=== PATIENT | male | born 1970 | race Caucasian/White ===

== ENCOUNTER 2017-08-21 19:06 | Observation (INO) ==
[2017-08-21] MEDS: Sodium Chloride 0.9% 1,000 ML PRIMARY IV SCH (19:15)
[2017-08-21] MEDS ORDERED: NITROGLYCERIN 0.4 MG SL TAB (BOTTLE OF 3) SL PRN (19:28)
[2017-08-21] MEDS ORDERED: NORMAL SALINE 10 ML SYRINGE FLUSH IVP PRN ×2 (19:28→20:57)
--- NOTE | 2017-08-21 19:31 | EKG ---
[address] [address] Measurements Intervals [place] Rate: 58 P: 34 VA: 158 QRS: 75 QRSD: 89 T: 32 QT: 393 QTc: 390 Interpretive Statements SINUS BRADYCARDIA No previous ECG available for comparison Electronically Signed On 08-23-17 12:55:35 MST by Memo Root [email or web address]
[2017-08-21 19:33] LABS: BLOOD UREA NITROGEN 11 mg/dL (7-22); BUN/CREATININE RATIO 12.22 (6-20); Hematocrit [HCT] 55.5 % (42.0-52.0); Hemoglobin [HGB] 19.1 g/dL (14.0-18.0); RED BLOOD COUNT 5.74 10^6/uL (4.70-6.10); SERUM ALBUMIN 4.3 g/dL (3.5-4.8)
[2017-08-21 19:34] LABS: BASOPHILS # (AUTO) 0.09 10*3/UL; BASOPHILS % (AUTO) 1.1 % (0-1); EOSINOPHILS # (AUTO) 0.29 10*3/UL; EOSINOPHILS % (AUTO) 3.4 % (0-8); LYMPHOCYTES # (AUTO) 2.09 10*3/uL; MEAN CORPUSCULAR HEMOGLOBIN 33.2 PG (27-31); MEAN CORPUSCULAR HGB CONC 34.4 g/dL (33-37); MEAN CORPUSCULAR VOLUME 97 FL (80-90); MEAN PLATELET VOLUME 7.3 FL (7.4-12.2); MONOCYTES # (AUTO) 0.79 10*3/UL (0.3-0.8); MONOCYTES % (AUTO) 9.3 % (5-15); NEUTROPHILS # (AUTO) 5.23 10*3/UL; NEUTROPHILS % (AUTO) 61.6 % (50-80); PLATELET MORPHOLOGY COMMENT NORMAL MORPHOLOGY (NORM); RBC MORPHOLOGY COMMENT NORMAL MORPHOLOGY (NORM); WBC MORPHOLOGY COMMENT NORMAL MORPHOLOGY (NORM)
--- NOTE | 2017-08-21 20:12 | DI ---
EXAM: XR Chest, 1 View CLINICAL HISTORY: Physician Notes: Tech Comments: TECHNIQUE: Frontal view of the chest. COMPARISON: No relevant prior studies available. FINDINGS: Lungs: Mild subsegmental left base atelectasis. No consolidation. Pleural space: Unremarkable. No pneumothorax. Heart: Unremarkable. No cardiomegaly. Mediastinum: Unremarkable. Bones/joints: Unremarkable. IMPRESSION: No radiographic findings of acute pulmonary disease
--- NOTE | 2017-08-21 20:50 | PDOC ---
HPI - History of Present Illness History of Present Illness: This very nice 47-year-old gentleman, who developed a sudden onset of chest pain with radiation to his throat with some shortness of breath but no diaphoresis he tried to manage this on his own he said he sat in the kitchen floor face down hugging himself took an aspirin as well pain was 7-8 out of 10 and by the time he reached the ER the patient was subsided. He is a smoker about 4 cigarettes a day for 5 years ago had a nuclear stress test but does not remember the results we did a stress part of his Lexiscan this morning he did quite well no chest pain during the test and initial part was within normal acute changes. He does not take any NSAIDs as well Past Medical History Tobacco Use: Current Every Day Smoker Do you dip or chew tobacco: No In the Past 12 Months, Have Used or Abuse Any of the Following Substance: Cocaine Medication / Allergies Home Medications: Home Medications Medication Instructions Recorded Confirmed Type NK [NK] 08/21/17 08/21/17 History Allergies/Adverse Reactions: Allergies 3 Allergy/AdvReac Type Severity Reaction Status Date / Time meperidine HCl [From Demerol] Allergy Severe BRADYCARDIA Verified 08/22/17 06:27 Review of Systems - Review of Systems All Systems: Reviewed & No Additional Complaints Except as Stated - Mouth/Throat Mouth/Throat Exam: DENIES: Negative System Review, Dental Problems, Oral Ulcers , Sore Throat, Hoarseness, Dysphagia, Dental Pain, Other, See HPI - Respiratory Respiratory: DENIES: Negative System Review, Cough, Sputum, Dyspnea At Rest, Dyspnea with Exertion, Pleuritic Pain, Hemoptysis, Wheezing, Other, See HPI - Cardiovascular Cardiovascular: REPORTS: Chest Pain - Gastrointestinal Gastrointestinal / Abdominal: DENIES: Negative System Review, Nausea, Vomiting, Diarrhea, Constipation, Abdominal Pain, Bloody Stool, Poor Appetite, Heartburn, Regurgitation, Bloating, Lactose Intolerance, Melena, Bright Red Blood per Rectum, Other, See HPI Exam - Vitals Vital Signs: Vital Signs Temperature 96.9 F Temperature Source Temporal Artery Scan Pulse Rate [Pulse Oximeter] 66 Pulse Rate 66 Respiratory Rate 18 Blood Pressure [Right Arm] 152/97 Pulse Ox 97 Oxygen Delivery Method Room Air Height 5 ft 10 in Weight 216 lb - General General Appearance: No Acute Distress, Cooperative - Head Head Exam: Normal Inspection, Normocephalic, Atraumatic - Eye Eye Exam: POSITIVE: Normal Appearance, PERRL, EOMI, No Scleral Icterus - ENT ENT Exam: POSITIVE: Normal Exam, Normal External Ear Exam, Normal Oropharynx, TM 's Normal Bilaterally, Mucous Membranes Moist - Neck Neck Exam: Normal Inspection, Full ROM, No Tenderness, No Lymphadenopathy, No Thyromegaly, JVP is not Raised - Respiratory Respiratory Exam: POSITIVE: Clear to Auscultation - Bilaterally, Breathing Non Labored, Normal To Percussion, Normal to Percussion and Palpation - Cardiovascular Cardiovascular Exam: POSITIVE: RRR, No Murmur, No Clicks, No Gallops, No Rubs, PMI Non-Displaced - GI/Abdominal GI/Abdominal Exam: POSITIVE: Normal Bowel Sounds, Non Tender, Non Distended, Soft, No Masses, No Hepatomegaly, No Splenomegaly, No Organomegaly - Rectal Rectal Exam: POSITIVE: Deferred - External Exam: POSITIVE: Deferred Exam: POSITIVE: Deferred - Extremities Extremities Exam: POSITIVE: Normal Inspection, Full ROM, Normal Capillary Refill , No Clubbing Present, No Edema Present, No Cyanosis Present, Negative Car's sign, Dosalis Pedis Pulses - Stong & Regular - Neurological Neurological Exam: POSITIVE: Alert, Oriented x 3, Reflexes Normal, Normal Gait, CN II-XII Intact, No Facial Droop, Speech Intact / Clear, Moves All Extremities Equally, No Fasciculations, No Clonus Results - Labs CBC and BMP: 08/22/17 09:50 08/22/17 07:00 Assessment and Plan - Patient Problems (1) Chest pain Current Visit: Yes Status: Acute Comment: trop x 3 , no chest pain at present Lexiscan is underway first part has been done he is a cocaine user I do not know if he has used any I will do a urine tox screen. Further evaluation when 4 images are done if negative consider GI source. Code(s): R07.9 - Chest pain, unspecified
[2017-08-21] MEDS ORDERED: LIDOCAINE W/ SODIUM BICARB 0.5 ML SYR SUBD PRN (20:57)
[2017-08-21] MEDS ORDERED: CALCIUM CARBONATE 500 MG (TUMS) CHEWABLE TABLET PO PRN (20:57)
[2017-08-21] MEDS ORDERED: ONDANSETRON 4 MG/2 ML VIAL IVP PRN (20:57)
--- NOTE | 2017-08-21 21:10 | PDOC ---
Chest Pain HPI - General Chief Complaint: Chest Pain Stated Complaint: CHEST PAIN Date Seen by Provider: 08/14/17 Time Seen by Provider: 19:10 Source: Patient, Spouse Exam Limitations: POSITIVE: No limitations Treatment Prior to Arrival: REPORTS: Aspirin Nurse's Notes Reviewed & Considered: Yes - History of Present Illness Initial Comments: The patient is a 47-year-old male. Approximately 1-1/2 hours [employer] he was at home sitting on a chair and he developed a "heaviness and sharp ache" in his anterior chest with some radiation into his throat. He describes the pain sometimes as a "squeezing". No dyspnea or diaphoresis. Patient took a adult aspirin at the time. He states he intensity of his pain at home was "she 6 or 7 on a scale of 10". By the time he gets to the emergency room the patient is pain has subsided. Patient smokes 3 or 4 cigarettes per day. Patient states he had an episode of chest pain 5 years ago and underwent a "nuclear stress test ", which the patient believes was normal. He's presently on no medications except one baby aspirin daily. Body Location Affected: REPORTS: Chest Timing: REPORTS: Abrupt, Improved Duration: 1-3 hours Severity: Moderate Persistent/Worse since (date): 08/21/17 Persistent/Worse since (time): 18:00 Context: REPORTS: Rest Quality: REPORTS: "Pain", Sharpness, Pressure, Other ("Squeezing") Radiation: REPORTS: Other (Throat) Associated Symptoms: DENIES: Nausea, Vomiting, Diaphoresis, Shortness of Breath , Hurts to Breathe, Palpitations, Productive Cough (blood), Productive Cough ( sputum), Weakness, Dizziness Modifying Factors: improves with: None Reported Similar Symptoms Previously: Yes (5 years ago as above) Recently seen/treated/hospitalized: No Any Prior Injuries Related to Current Complaint?: No - Patient Home Medications Home Medications: Home Medications NK [NK] 08/21/17 - Patient Allergies Allergies/Adverse Reactions: Allergies 3 Allergy/AdvReac Type Severity Reaction Status Date / Time meperidine HCl [From Demerol] Allergy Severe BRADYCARDIA Verified 08/21/17 19:17 Past Medical History - heen HEENT History: Denies History Cardiovascular History: Denies History Respiratory History: Denies History Gastrointestinal History: Denies History Genitourinary History: Kidney Stones Endocrine History: Denies History Musculoskeletal History: Back Pain, Back Injury Neurological History: Denies History, Frequent Headaches, Other (please comment) Additional Neurological History: C5-C6 BULGING DISK, LEFT SCIATIC NERVE SCAR TISSUE, LEFT HIP JOINT LOOSE Blood Disorders: Denies History Psychiatric History: Denies History History of Sexually Transmitted Diseases: No Male Reproductive History: Denies History Cancer History: Denies History In Past Year Been Physically Harmed or Verbally Threatened: No History of MDRO: No History of Other Communicable Diseases: No Tobacco Use: Current Every Day Smoker Alcohol Use: Rarely Type of alcohol normally used: Beer, Hard Liquor In the Past 12 Months, Have Used or Abuse Any Substance: Cocaine Previous Surgical History: Yes Type / Date of Surgery: BACK SURGERY, HERNIA REPAIR Anesthesia Reactions: No Malignant Hyperthermia: No Significant Family History: No pertinent family hx Past Medical History Reviewed: Reviewed - No Changes ROS - Limitations ROS Limitations: No Limitations Constitution: REPORTS: Denies Symptoms Cardiovascular: REPORTS: Chest Pain Respiratory: REPORTS: Denies Resp Symptoms Neurological: REPORTS: Denies Neuro Symptoms Gastrointestinal: REPORTS: Denies GI Symptoms Endocrine: REPORTS: Denies Symptoms Musculoskeletal: REPORTS: Denies MS Symptoms Genitourinary: REPORTS: Denies Symptoms Eyes: REPORTS: Denies Symptoms ENT: REPORTS: Denies Symptoms Skin: REPORTS: Denies Skin Symptoms Lympathic: REPORTS: Denies Lympathic Symptoms Immunologic: POSITIVE: Denies Symptoms Psychiatric: POSITIVE: Denies Psych Symptoms Chest Pain PE - General Appearance General Appearance: REPORTS: Alert, Cooperative, No Acute Distress, No Evidence of Trauma - HEENT HEENT: POSITIVE: Head Inspection Nml, Eyes Inspection Nml, Ears Inspection Nml, Nose Inspection Nml, Oral/Dental Inspect. Nml, Pharynx Inspect. Nml, PERRL, EOMI - Neck Neck: REPORTS: Normal Inspection, No Carotid Bruit - Respiratory Respiratory: REPORTS: No Respiratory Distress, Breath Sounds Normal, Chest Non- Tender - Cardiovascular Cardiovascular: REPORTS: Regular Rate and Rhythm, Heart Sounds Normal, Equal Pulses, Strong Pulses, No Murmur, No Gallop, No Friction Rub, No JVD Peripheral Pulses: Radial (R): 2+, Radial (L): 2+ - Abdomen Abdomen: Soft: (All Quadrants), Normal Bowel Sounds: (All Quadrants), Denies Tenderness: (All Quadrants), No Splenomegaly: (All Quadrants), No Hepatomegaly: (All Quadrants), No Guarding: (All Quadrants), No Rebound: (All Quadrants), No Palpable Pulse: (All Quadrants), No Palpabale Mass: (All Quadrants), No Distention: (All Quadrants), No Rigidity: (All Quadrants) - Skin Skin: REPORTS: Intact, Normal For Race, Warm, Dry, No Rash - Extremities Extremity: Non-Tender: (All Extremities), Normal ROM: (All Extremities), Normal Inspection: (All Extremities) - Neurological / Psychological Neurological: POSITIVE: 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, 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, 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 As Tested, Motor Normal, Sensation Normal Images - Complete Complete: 1 - Area of described pain Chest Pain Progress - Results Reviewed by me Xrays/CTs/US Reviewed by me: Yes Discussed with Radiologist: No Radiology Findings: AP chest x-ray normal Lab Results Reviewed by Me: Yes (d-dimer and troponin normal) CBC and BMP: 08/21/17 19:15 08/21/17 19:15 EKG Interpreted/Reviewed By Me:: Yes (normal) EKG Interpretation:: POSITIVE: Normal Sinus Rhythm, Normal Rate, Normal Intervals, Normal [place], Normal QRS, Normal ST/T - Patient's Progress Pain Medication Addressed: POSITIVE: Yes (Nitroglycerin sublingual given with probably some relief of his chest discomfort) Re-Examine Time: 20:35 Re-Examine Comment: Chest discomfort resolved Status: POSITIVE: Improved, Re-Examined Quality Measure Initiative: CP/AMI: POSITIVE: EKG, ASA - Consult Consult (If Yes, Name of Consulting MD & Time Called): Yes (Dr. Barlow, hospitalist, [id number]) Consulting MD will see pt:: POSITIVE: [facility] Admit Counseled: POSITIVE: Patient, Family, RE: Lab Results, RE: Radiology Results, RE : DX, RE: Need for F/U Patient Care Time - Estimated PCT Patient Care Time (In Minutes): 45 Vital Signs - Recent Vital Signs Vital Signs: Vital Signs (Last 8 hours) Temp Pulse Pulse Resp BP Pulse Ox 08/21/17 19:06 96.9 F 66 66 18 152/97 97 - VS Reviewed Vital Signs Reviewed: Yes Discharge Clinical Impression: Chest pain Discharge Disposition: Admit to Inpatient Condition: Stable Date Decision to Admit to Inpatient: 08/21/17 Time Decision to Admit to Inpatient: 20:35
[2017-08-22] MEDS: Sodium Chloride 0.9% 1,000 ML PRIMARY IV SCH (04:10)
[2017-08-22 07:22] LABS: BLOOD UREA NITROGEN 9 mg/dL (7-22); BUN/CREATININE RATIO 12.85 (6-20); CHOL/HDL RATIO 4.75 RATIO (0-4.0); SERUM ALBUMIN 3.3 g/dL (3.5-4.8); SERUM CHOLESTEROL 190 mg/dL (120-200)
[2017-08-22 10:00] LABS: Hematocrit [HCT] 49.1 % (42.0-52.0); Hemoglobin [HGB] 16.8 g/dL (14.0-18.0); MEAN CORPUSCULAR VOLUME 97 FL (80-90); RED BLOOD COUNT 5.08 10^6/uL (4.70-6.10)
[2017-08-22 10:01] LABS: MEAN CORPUSCULAR HEMOGLOBIN 33.1 PG (27-31); MEAN CORPUSCULAR HGB CONC 34.2 g/dL (33-37); MEAN PLATELET VOLUME 7.7 FL (7.4-12.2)
--- NOTE | 2017-08-22 11:21 | STRESSTEST ---
[facility] [place] Interpretive Statements 47 yo with no hx of CAD had [place]deen chest pain while at home lasting about 30 minutes., trops are negative no significant ekg changes. no acute changes on stress portion Electronically Signed On 08-24-17 08:20:33 MST by Hitesh Avalos MD [id number]
[2017-08-22 12:24] LABS: AMPHETAMINE SCREEN NEGATIVE (NEG); CANNABINOID SCREEN,URINE NEGATIVE (NEG); COCAINE SCREEN NEGATIVE (NEG); METHADONE URINE SCREEN NEGATIVE (NEG); METHAMPHETAMINES SCREEN,URINE NEGATIVE (NEG); OPIATE SCREEN,URINE NEGATIVE (NEG); URINE SAMPLE TYPE CLEAN CATCH URINE; URINE SPECIFIC GRAVITY - MAN 1.002
[2017-08-22] MEDS ORDERED: MORPHINE SULFATE 2 MG/1 ML IVP STA (14:31)
--- NOTE | 2017-08-22 14:41 | EKG ---
[address] [address] Measurements Intervals [place] Rate: 69 P: 54 HI: 149 QRS: 80 QRSD: 96 T: 52 QT: 371 QTc: 390 Interpretive Statements SINUS RHYTHM Compared to ECG 08/21/2017 19:11:35 Sinus bradycardia no longer present Electronically Signed On 08-23-17 12:46:46 MST by Memo Root [id number]
[2017-08-22] MEDS ORDERED: Belladon/PHENobarbital Elixir 10 ML, Lidocaine Viscous Liquid 2% 15 ML, Mag Hyd/Al Hyd/... PO ONE ×3 (14:52)
[2017-08-22] MEDS ORDERED: LIDOCAINE 2% VISCOUS(20 MG/1 ML) - 15 ML UD CUP PO ONE (15:21)
[2017-08-22] MEDS ORDERED: MAG HYDROX/AL HYDROX/SIMETH 30 ML SUSP PO ONE (15:21)
[2017-08-22] MEDS ORDERED: BELLADONNA ALKALOIDS/PHENOBARB 32.4 MG/10 ML PO ONE (15:28)
--- NOTE | 2017-08-23 10:15 | DCSUMMARY ---
Hospitalization Summary Hospital Course: Final Discharge Diagnosis: Current Visit Problems Problem Status Onset Code Chest pain Acute R07.9 Chest pain Acute R07.9 Diagnostic Data, Laboratory Data, and Procedures of Signifigance: Laboratory Results 08/22/17 08/22/17 Range/Units 11:35 14:43 Troponin I < 0.012 (< 0.040) ng/mL Ur Collection Type Clean catch urine U Specif Grav (Refrac) 1.002 Urine Opiates Screen Negative (NEG) Ur Buprenorphine Negative (NEG) Ur Oxycodone Screen Negative (NEG) Urine Methadone Screen Negative (NEG) Ur Propoxyphene Screen Negative (NEG) Barbiturate Screen Negative (NEG) U Tricyclic Antidepress Negative (NEG) Phencyclidine Screen Negative (NEG) Amphetamines Screen Negative (NEG) U Methamphetamines Scrn Negative (NEG) Benzodiazepines Screen Negative (NEG) Cocaine Screen Negative (NEG) U Marijuana (THC) Screen Negative (NEG) History and Physical pertinent to Admission: Course of Hospitalization: This very nice 47-year-old gentleman who comes in complaining of chest pain while hospitalized he did have chest pain again with the normal EKG and troponins all other 3 troponins were negative relieved by morphine. He should underwent Lexiscan stress test. 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 Mascorro retail client solutions consultant at [facility] heparin drip was started On the date of discharge, the patient was examined: Gen.: No acute distress, alert, nontoxic Heart: Regular rate and rhythm, no murmurs, clicks, gallops, or rubs Lungs: Clear to auscultation bilaterally, breathing is nonlabored Abdomen/GI: Normal tones on auscultation, soft, nontender, nondistended Musculoskeletal/extremities: No clubbing, cyanosis, or edema Vitals reviewed and are listed below Vital Signs (24 hrs) Temp Pulse Pulse Pulse Resp BP Pulse Ox 08/23/17 11:00 54 L 08/23/17 08:58 97.2 F 47 L 16 132/78 93 08/23/17 06:31 45 L 08/23/17 04:28 97.2 F 53 L 12 110/69 94 08/23/17 04:05 90 08/23/17 03:00 47 L 08/23/17 00:30 97.7 F 55 L 22 140/82 95 08/22/17 23:00 56 L 08/22/17 20:02 98.3 F 65 16 129/79 93 08/22/17 19:05 96 08/22/17 19:00 59 L 64 08/22/17 17:00 97.8 F 56 L 16 121/72 97 08/22/17 15:00 62 08/22/17 14:34 97.1 F 62 12 139/77 96 Assessment and Plan: 1. As per discharge assessments above 2. Disposition: Home 3. Condition on discharge, stable and improved. 4. Diet: regular diet 5. Activities: resume normal activities 6. Follow-Up: 1. PCP 2. 7. Medications at the Time of Discharge: Home Medications Medication Instructions Recorded Confirmed Type NK [NK] 08/21/17 08/21/17 History 3 Generic Name Dose Route Start Last Admin Trade Name Freq PRN Reason Stop Dose Admin Calcium Carbonate 1 - 2 tab 08/21/17 20:57 Tums PO QID PRN Heartburn Sodium Chloride 25 mls @ 200 mls/hr 08/21/17 20:57 Normal Saline 0.9% IV .Post Infusion PRN Flush Lidocaine HCl 0.5 ml 08/21/17 20:57 Lidocaine Buffered Inj SUBD ONCE PRN IV Starts Ondansetron HCl 4 mg 08/21/17 20:57 Zofran Inj IVP Q4H PRN NAUSEA / VOMITING Sodium Chloride 5 - 20 ml 08/21/17 20:57 Saline Flush IVP BID PRN Flush 8. Time, care, counseling and coordination of care for this discharge is greater than 30 minutes. Exam - Vitals Vital Signs: Vital Signs Temperature 97.2 F Temperature Source Temporal Artery Scan Pulse Rate [Apical] 64 Pulse Rate [Pulse Oximeter] 47 Pulse Rate 45 Respiratory Rate 16 Blood Pressure [Right Arm] 132/78 Blood Pressure 108/82 Pulse Ox 93 Oxygen Delivery Method Room Air Height 5 ft 10 in Weight 221 lb Patient Problems - Patient Problem List (1) Chest pain Current Visit: Yes Status: Acute Code(s): R07.9 - Chest pain, unspecified Category: Medical
[2017-08-23] MEDS ORDERED: Heparin Drip 25,000 UNIT/500 ML BAG IV ONE (12:48)
[2017-08-23] MEDS ORDERED: Heparin Drip 25,000 UNIT/500 ML BAG IV SCH (13:00)
[2017-08-23 13:15] VITALS: BP 134/93; RESP 18; TEMP 97.9; O2SAT 95
--- NOTE | 2017-08-24 08:20 | DI ---
2 DAY LEXISCAN STRESS & REST MYOCARDIAL PERFUSION SCANS, 08/22/2017 7:00 AM : Clinical History: Chest pain radiating to the arm and neck Previous Exam: None at this facility. The patient was stressed by Dr. Renaldo Pugh The standard Lexiscan protocol was used. Please see the Doctor's report. At the designated time, 35.2 mCi of 99Tc-sestimibi was injected IV. Stress gated tomograms were acquired within one hour of the i njection. For the resting scans, 36.1 mCi was injected IV and resting gated tomograms were acquired in similar fashion. Stress scans were performed on August 22, 2017; the resting scans were performed on August 23. Quantitative and qualitative analyses were performed. Quantitative analysis was performed with the [place] [facility] [id number] protocols. Very low dose limited CT scans of the chest are o btained through the level of the heart for attenuation correction of the gated stress and rest cardia c SPECT data. Non-attenuated and attenuated scans were processed for review, and the attenuated scans were used for final interpretation of this study. Review of the raw data images and fuel quality tech files indicate that these series of examinations ar e of very good quality. There are only 4% rejected beats. Stress and rest left ventricular chamber sizes are normal. Stress and rest LVEF are 72 % and 72 %, r espectively. There is no evidence of ischemia. Wall motion is normal. Transient ischemic dilatation ratio is 1.07, with a normal range up to 1.22 for patients str essed with the Oj protocol and up to 1.33 for patients stressed with the Lexiscan protocol. The very low dose CT scans through the level of the heart show no coronary artery calcifications. The re is no adenopathy or evidence of lung nodules. Reading: Normal study.
== END 2017-08-23 13:33 | disposition short-term general hospital (02) ==
LOC: ER 19:06 → MED/SURG 19:06
PROVIDERS: ADMIT Internal Medicine; ATTEND Internal Medicine